=== PATIENT | female | born 1980 | race Caucasian/White ===

== ENCOUNTER → 2017-03-31 | Outpatient (CLI) | payer OTHER ==
--- NOTE | 2017-03-31 09:38 | MM ---
Reason for exam: clinical finding. Last mammogram was performed 9 years and 2 months ago. History: Took hormonal contraceptives for 9 years beginning at age 19. Physical Findings: Nurse Summary: There is a 1 cm nodule in the right breast at 10 o'clock (nurse scott). MG 3D Diag Mammo W/Cad GERMANIA LM view(s) were taken of the right breast. Prior study comparison: February 03, 2008, bilateral diagnostic digital mammog. The breast tissue is heterogeneously dense. This may lower the sensitivity of mammography. Focal asymmetry upper outer left breast improved with spot images and inner right breast CC view improved. These results were verbally communicated with the patient and result sheet given to the patient on 03/31/17. ASSESSMENT: Incomplete: need additional imaging evaluation, BI-RAD 0 RECOMMENDATION: Ultrasound of the right breast. (Manage on a clinical basis).
--- NOTE | 2017-03-31 09:44 | USB ---
Reason for exam: clinical finding. History: Took hormonal contraceptives for 9 years beginning at age 19. US Breast RT Right breast ultrasound includes all four quadrants, the retroareolar region and axilla. Finding demonstrates no cystic or solid lesion seen. These results were verbally communicated with the patient and result sheet given to the patient on 03/31/17. ASSESSMENT: Probably benign, BI-RAD 3 RECOMMENDATION: Follow-up diagnostic mammogram of both breasts in 6 months. (manage on a clinical basis).
== END | disposition home or self-care (01) ==
LOC: RADMAMWWP 07:44
PROVIDERS: ATTEND Obstetrics & Gynecology
DX: N63.10 Unspecified lump in the right breast, unspecified quadrant (principal)
CPT/HCPCS: 76641; G0204; G0279